=== PATIENT | female | born 1960 | race Caucasian/White ===

== ENCOUNTER 2017-02-06 17:55 | Emergency (ER) | payer OTHER ==
[~2017-02-06] VITALS: Ht 170.2 cm; Wt 88.4 kg
[2017-02-06 19:14] LABS: ASPARTATE AMINO TRANSFERASE 77 U/L (15-37); BLOOD UREA NITROGEN 10 mg/dL (7-18)
[2017-02-06] MEDS ORDERED: PHENAZOPYRIDINE 200 MG TABLET ONE (20:41)
[2017-02-06 20:43] VITALS: BP 122/64
== END 2017-02-06 20:45 | disposition home or self-care (01) ==
LOC: ED 19:32
DX: N30.90 Cystitis, unspecified without hematuria (principal); Z90.49 Acquired absence of other specified parts of digestive tract; Z90.710 Acquired absence of both cervix and uterus
CPT/HCPCS: 36415; 80053; 81001; 85025; 87086; 99284